=== PATIENT | female | born 1995 | race Caucasian/White ===

== ENCOUNTER → 2017-09-07 | Outpatient (CLI) | payer OTHER, BC ==
[~2017-09-07] MED LIST: CIPRO500 MG PO
--- NOTE | 2017-09-07 16:08 | Diagnostic Imaging Report ---
MRI of the left foot without contrast. History: Foot pain. Decreased range of motion disorder of ligament. Contusion. Trauma. Technique: Multiplanar multisequence MRI of the foot without contrast Comparison: None Findings: There is no acute fracture, subluxation or avascular necrosis. No osseous erosion or focal bone marrow edema is seen. No ligamentous or tendon tear is seen. The visualized muscles are normal in size, signal intensity and morphology. The visualized neurovascular bundles are intact. There is a moderate amount of nonspecific superficial soft tissue edema at the dorsal lateral aspect of the foot adjacent to the cuboid bone as seen on series 6 image 14 through 19. Impression: Moderate nonspecific superficial soft tissue edema at the dorsal lateral aspect of the foot adjacent to the cuboid bone. No ligamentous or tendon tear is seen. No acute fracture, subluxation or avascular process. Signed by: Dr. Po Walls M.D. on 09/07/2017 4:04 PM
== END ==
LOC: MRI 14:48
PROVIDERS: ATTEND Family Medicine
DX: M79.672 Pain in left foot (principal); S90.32XA Contusion of left foot, initial encounter; M24.275 Disorder of ligament, left foot
CPT/HCPCS: 81025